=== PATIENT | female | born 1955 | race Hispanic/Latino ===

== ENCOUNTER 2021-03-15 16:45 | Emergency (ER) | payer SELFPAY ==
[2021-03-15 17:29] LABS: Absolute Lymphocytes (CBC) 5.6 K/uL (0.7-4.9); Basophils % 0.2 % (0-1.3); Hematocrit 40.3 % (36.0-45.0); Lymphocytes % 38.3 % (15.3-44.8); MPV 9.5 fL (7.6-11.3); RBC Red Blood Cell Count 4.67 M/uL (3.86-4.86)
[2021-03-15] MEDS ORDERED: DIAZEPAM 10 MG/2 ML INJ SYRINGE ONE (17:29)
[2021-03-15] MEDS ORDERED: ONDANSETRON 4 MG/2 ML VIAL ONE ×2 (17:29→18:10)
[2021-03-15] MEDS ORDERED: NA CHLORIDE 0.9% 1,000 ML ONE (17:30)
[2021-03-15 17:34] LABS: Protime INR 0.92
--- NOTE | 2021-03-15 17:50 | RAD REPORT ---
EXAM DESCRIPTION: CT - Head Brain Wo Cont - 03/15/2021 5:36 pm CLINICAL HISTORY: Dizziness COMPARISON: 2016 TECHNIQUE: Computed axial tomography of the head was obtained. IV contrast was not requested. All CT scans are performed using dose optimization technique as appropriate and may include automated exposure control or mA/KV adjustment according to patient size. FINDINGS: An intracranial bleed is not seen . The ventricles are normal in caliber. No extra-axial fluid collection is noted. 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 Mild low-density areas within per iventricular, deep and subcortical white matter likely ischemic changes secondary to mild small vesse l disease Fluid within the sinuses/ mastoids is not seen. IMPRESSION: No acute intracranial abnormality is seen. If patient's symptoms persist MRI of the bra in would be recommended.
[2021-03-15 17:56] LABS: ALT/SGPT 26 U/L (12-78); AST/SGOT 18 U/L (15-37); Alkaline Phosphatase 124 U/L (45-117); BUN Blood Urea Nitrogen 16 mg/dL (7-18); Bicarbonate 19 mmol/L (21-32); Bilirubin Direct < 0.1 mg/dL (0-0.2); Bilirubin Total 0.4 mg/dL (0.2-1.0); Glucose Level 265 mg/dL (74-106); Magnesium 1.7 mg/dL (1.8-2.4); NT PRO-BNP 22 pg/mL (<125); Potassium 3.3 mmol/L (3.5-5.1); Protein, Total 8.2 g/dL (6.4-8.2); Sodium Level 138 mmol/L (136-145); Troponin (Emerg Dept Use Only) < 0.02 ng/mL (0.0-0.045)
--- NOTE | 2021-03-15 18:42 | RAD REPORT ---
EXAM DESCRIPTION: Cora Single View03/15/2021 5:52 pm CLINICAL HISTORY: Vertigo COMPARISON: 2012 FINDINGS: Calcified granulomas within the lungs. The lungs appear clear of acute infiltrate. The heart is normal size IMPRESSION: No acute abnormalities displayed
[2021-03-15] MEDS ORDERED: POTASSIUM CL SA 10 MEQ TAB PO ONE (18:47)
[2021-03-15] MEDS ORDERED: MECLIZINE HCL 12.5 MG TAB ONE ×2 (18:47→20:22)
[2021-03-15] MEDS ORDERED: MAGNESIUM SULFATE 1 gm IVPB 1 GM/100 ML BAG IV ONE (18:48)
--- NOTE | 2021-03-15 21:11 | ER ---
Nurse's Notes [facility] Name: Ursuzla Menchaca Age: 65 yrs Sex: Female : 1955 Arrival Date: 03/15/2021 Time: 16:46 Bed 23 Private MD: Diagnosis: Benign paroxysmal vertigo Presentation: 03/15 16:52 Chief complaint: Patient states: Dizziness, N/V started around 1530 today. HX of ca1 Vertigo. Coronavirus screen: Client denies travel out of the [place] in the last 14 days. At this time, the client does not indicate any symptoms associated with coronavirus-19. Ebola Screen: Patient negative for fever greater than or equal to 101.5 degrees Fahrenheit, and additional compatible Ebola Virus Disease symptoms Patient denies exposure to infectious person. Patient denies travel to an Ebola-affected area in the 21 days before illness onset. No symptoms or risks identified at this time. Initial Sepsis Screen: Does the patient meet any 2 criteria? No. Patient's initial sepsis screen is negative. Does the patient have a suspected source of infection? No. Patient's initial sepsis screen is negative. Risk Assessment: Do you want to hurt yourself or someone else? Patient reports no desire to harm self or others. Onset of symptoms was March 15, 2021 at 15:30. 16:52 Method Of Arrival: Wheelchair ca1 16:52 Acuity: MARIFER 3 ca1 Historical: - Allergies: 16:53 Morphine; ca1 - PMHx: 16:53 Diabetes - NIDDM; Hypertension; Vertigo; ca1 - Immunization history:: Client reports receiving the 1st dose of the Covid vaccine, Adams and adams Flu vaccine is up to date. - Social history:: Smoking status: Patient denies any tobacco usage or history of. Screenin:41 Abuse screen: Denies threats or abuse. Denies injuries from another. Nutritional zb screening: No deficits noted. Tuberculosis screening: No symptoms or risk factors identified. Fall Risk No fall in past 12 months (0 pts). Secondary diagnosis (15 points) vertigo . IV access (20 points). Ambulatory Aid- None/Bed Rest/Nurse Assist (0 pts). Gait- Impaired (20 pts.). Mental Status- Oriented to own ability (0 pts). Total Ramirez Fall Scale indicates Low Risk Score (25-44 pts). Fall prevention measures have been instituted. Side Rails Up X 2 Placed close to Nursing Station Frequent Obs/Assesments occuring Family Present and informed to notify staff if they need to leave bedside As available Patient and Family Educated on Fall Prevention Program and strategies. Assessment: 17:42 General: Appears uncomfortable, Behavior is calm. Pain: Denies pain. Neuro: Level of zb Consciousness is awake, alert, Oriented to person, place, time, Reports dizziness, since 1500. Cardiovascular: Capillary refill < 3 seconds Patient's skin is warm and dry. Respiratory: Airway is patent Respiratory effort is even, unlabored, Respiratory pattern is regular, symmetrical. GI: Pt is actively vomiting clear fluid, Bowel sounds present X 4 quads. Reports nausea, vomiting. Derm: Skin is intact, is healthy with good turgor, Skin is dry. Musculoskeletal: Range of motion: intact in all extremities. 17:43 Reassessment: x-ray at bedside. zb 17:45 Reassessment: pt came back from ct c/o nausea and dry heaving. notified dr. lea watkins received verbal order for medication. medication given. 18:52 Reassessment: Patient appears in no apparent distress at this time. Patient and/or zb family updated on plan of care and expected duration. Pain level reassessed. Patient is alert, oriented x 3, equal unlabored respirations, skin warm/dry/pink. no n/v at this time. IV fluid infusing. family at bedside. 20:02 Reassessment: notified ecp that patient feels a little better. still c/o of dizziness. zb 20:52 Reassessment: Patient appears in no apparent distress at this time. Patient and/or zb family updated on plan of care and expected duration. Pain level reassessed. Patient is alert, oriented x 3, equal unlabored respirations, skin warm/dry/pink. 21:38 Reassessment: Patient appears in no apparent distress at this time. Patient and/or zb family updated on plan of care and expected duration. Pain level reassessed. Patient is alert, oriented x 3, equal unlabored respirations, skin warm/dry/pink. Patient states feeling better. Vital Signs: 16:52 BP 169 / 69; Pulse 93; Resp 18 S; Temp 96.2(TE); Pulse Ox 98% on R/A; Weight 67.59 kg ca1 (R); Height 5 ft. 0 in. (152.40 cm) (R); Pain 0/10; 17:59 BP 151 / 79; Pulse 87; Resp 16; Pulse Ox 91% on R/A; zb 18:51 BP 155 / 75; Pulse 85; Resp 16; Pulse Ox 95% on R/A; zb 20:02 BP 151 / 78; Pulse 86; Resp 16; Pulse Ox 95% on R/A; zb 20:51 BP 154 / 78; Pulse 88; Resp 18; Pulse Ox 100% on R/A; zb 16:52 Body Mass Index 29.10 (67.59 kg, 152.40 cm) ca1 ED Course: 16:46 Patient arrived in ED. as 16:53 Triage completed. ca1 16:53 Arm band placed on right wrist. ca1 16:59 Camilla Almendarez RN is Primary Nurse. zb 17:02 Hugo Rivas NP is PHCP. pm1 17:02 Robi Marquis MD is Attending Physician. pm1 17:36 CT Head Brain wo Cont In Process Unspecified. EDMS 17:43 Initial lab(s) drawn, by me, sent to lab. Inserted saline lock: 20 gauge in right zb wrist, using aseptic technique. Blood collected. 17:44 Patient has correct armband on for positive identification. Bed in low position. Call zb light in reach. Side rails up X 1. panel monitor on. Pulse ox on. NIBP on. Door closed. Noise minimized. 17:52 XRAY Chest (1 view) In Process Unspecified. EDMS 21:38 No provider procedures requiring assistance completed. IV discontinued, intact, zb bleeding controlled, No redness/swelling at site. Pressure dressing applied. Administered Medications: 17:16 Drug: NS 0.9% 1000 ml Route: IV; Rate: 1000 ml; Site: right antecubital; zb 17:17 Drug: Zofran (Ondansetron) 4 mg Route: IVP; Site: right antecubital; zb 17:20 Follow up: Response: No adverse reaction; Marked relief of symptoms zb 17:17 Drug: Valium (diazepam) 5 mg Route: IVP; Site: right antecubital; zb 17:20 Follow up: Response: No adverse reaction; Marked relief of symptoms zb 17:58 Drug: Zofran (Ondansetron) 4 mg Route: IVP; Site: right wrist; zb 18:50 Follow up: Response: No adverse reaction; Marked relief of symptoms; Nausea is decreasedzb 18:50 Drug: Meclizine 25 mg Route: PO; zb 20:01 Follow up: Response: No adverse reaction; Marked relief of symptoms zb 18:50 Drug: Magnesium Sulfate 1 grams Route: IVPB; Infused Over: 1 hrs; Site: right wrist; zb 19:50 Follow up: IV Status: Completed infusion; IV Intake: 100ml zb 18:50 Drug: Potassium Chloride 40 mEq Route: PO; zb 20:01 Follow up: Response: No adverse reaction; Marked relief of symptoms zb 19:59 CANCELLED (Physician Discretion): Meclizine 50 mg PO once pm1 20:01 Drug: Meclizine 25 mg Route: PO; zb 21:38 Follow up: Response: No adverse reaction zb Intake: 19:50 IV: 100ml; Total: 100ml. zb Outcome: 21:10 Discharge ordered by MD. pm1 21:38 Discharged to home ambulatory. zb 21:38 Condition: stable 21:38 Discharge instructions given to patient, Instructed on discharge instructions, follow up and referral plans. medication usage, Demonstrated understanding of instructions, follow-up care, medications, Prescriptions given X 2. 21:39 Patient left the ED. zb Signatures: Dispatcher [employer] EDFadia Lord Patrick, DEV MOTOR VEHICLE SALESPERSON pm1 Oralia Rodgers RN RN ca1 Brown, Zipporah, RN RN zb
--- NOTE | 2021-03-15 21:11 | EDPHYS ---
Physician Documentation [facility] Name: Urszula Menchaca Age: 65 yrs Sex: Female : 1955 Arrival Date: 03/15/2021 Time: 16:46 Bed 23 Private MD: ED Physician Robi Marquis HPI: 03/15 17:05 This 65 yrs old Female presents to ER via Wheelchair with complaints of pm1 Vertigo. 17:05 The patient presents with vertigo. pm1 17:05 Onset: The symptoms/episode began/occurred today, at 15:30. pm1 17:05 Modifying factors: The symptoms are alleviated by closing eyes, holding head still, the pm1 symptoms are aggravated by movement of head, changing position. Associated signs and symptoms: Pertinent positives: nausea, vomiting, Pertinent negatives: chest pain, shortness of breath. Severity of symptoms: in the emergency department the symptoms are unchanged Pain is currently a 0 / 10. The patient has experienced similar episodes in the past, several times, and the symptoms today are exactly the same. 23:50 Context: occurred at home. pm1 Historical: - Allergies: 16:53 Morphine; ca1 - PMHx: 16:53 Diabetes - NIDDM; Hypertension; Vertigo; ca1 - Immunization history:: Client reports receiving the 1st dose of the Covid vaccine, Adams and adams Flu vaccine is up to date. - Social history:: Smoking status: Patient denies any tobacco usage or history of. ROS: 17:05 Constitutional: Negative for fever, chills, and weight loss, Eyes: Negative for injury, pm1 pain, redness, and discharge, ENT: Negative for injury, pain, and discharge, Neck: Negative for injury, pain, and swelling, Cardiovascular: Negative for chest pain, palpitations, and edema, Respiratory: Negative for shortness of breath, cough, wheezing, and pleuritic chest pain. 17:05 Back: Negative for injury and pain, MS/Extremity: Negative for injury and deformity, Skin: Negative for injury, rash, and discoloration. 17:05 Abdomen/GI: Positive for nausea and vomiting, Negative for abdominal pain, diarrhea, constipation. 17:05 Neuro: Positive for dizziness, Negative for headache, numbness, tingling, weakness. 17:05 All other systems are negative. pm1 Exam: 17:05 Constitutional: This is a well developed, well nourished patient who is awake, alert, pm1 and in no acute distress. Head/Face: Normocephalic, atraumatic. 17:05 Neck: Trachea midline, no thyromegaly or masses palpated, and no cervical lymphadenopathy. Supple, full range of motion without nuchal rigidity, or vertebral point tenderness. No Meningismus. 17:05 Back: No spinal tenderness. No costovertebral tenderness. Full range of motion. Skin: Warm, dry with normal turgor. Normal color with no rashes, no lesions, and no evidence of cellulitis. MS/ Extremity: Pulses equal, no cyanosis. Neurovascular intact. Full, normal range of motion. 17:05 Eyes: Extraocular movements: intact throughout, Nystagmus: horizontal vestibular nystagmus when looking to the left of center. 17:05 ENT: Mouth: Lips: normal, Oral mucosa: normal, pink and intact, moist. 17:05 Cardiovascular: Exam negative for acute changes, Rate: normal, Rhythm: regular, Pulses: no pulse deficits are appreciated, Heart sounds: normal, Edema: is not appreciated. 17:05 Respiratory: Exam negative for acute changes, respiratory distress, shortness of breath, Breath sounds: are clear throughout. 17:05 Abdomen/GI: Inspection: abdomen appears normal, Palpation: abdomen is soft and non-tender, in all quadrants. 17:05 Neuro: Exam negative for acute changes, Orientation: is normal, Mentation: is normal, Motor: is normal, moves all fours. Vital Signs: 16:52 BP 169 / 69; Pulse 93; Resp 18 S; Temp 96.2(TE); Pulse Ox 98% on R/A; Weight 67.59 kg ca1 (R); Height 5 ft. 0 in. (152.40 cm) (R); Pain 0/10; 17:59 BP 151 / 79; Pulse 87; Resp 16; Pulse Ox 91% on R/A; zb 18:51 BP 155 / 75; Pulse 85; Resp 16; Pulse Ox 95% on R/A; zb 20:02 BP 151 / 78; Pulse 86; Resp 16; Pulse Ox 95% on R/A; zb 20:51 BP 154 / 78; Pulse 88; Resp 18; Pulse Ox 100% on R/A; zb 16:52 Body Mass Index 29.10 (67.59 kg, 152.40 cm) ca1 MDM: 17:04 Patient medically screened. pm1 21:08 Data reviewed: vital signs. Data interpreted: Pulse oximetry: on room air is 100 %. pm1 Interpretation: normal. Counseling: I had a detailed discussion with the patient and/or guardian regarding: the historical points, exam findings, and any diagnostic results supporting the discharge/admit diagnosis, lab results, radiology results, the need for outpatient follow up, to return to the emergency department if symptoms worsen or persist or if there are any questions or concerns that arise at home. 03/15 17:04 Order name: Basic Metabolic Panel; Complete Time: 18:07 pm03/15 17:04 Order name: CBC with Diff; Complete Time: 18:07 pm03/15 17:04 Order name: LFT's; Complete Time: 18:07 pm03/15 17:04 Order name: Magnesium; Complete Time: 18:07 pm03/15 17:04 Order name: NT PRO-BNP; Complete Time: 18:07 pm03/15 17:04 Order name: PT-INR; Complete Time: 18:07 pm03/15 17:04 Order name: Troponin (emerg Dept Use Only); Complete Time: 18:07 pm03/15 17:04 Order name: XRAY Chest (1 view); Complete Time: 19:15 pm03/15 17:04 Order name: CT Head Brain wo Cont; Complete Time: 17:51 pm03/15 17:04 Order name: EKG; Complete Time: 17:05 pm03/15 17:04 Order name: Cardiac monitoring; Complete Time: 18:02 pm03/15 17:04 Order name: EKG - Nurse/Tech; Complete Time: 18:02 pm03/15 17:04 Order name: IV Saline Lock; Complete Time: 17:17 pm03/15 17:04 Order name: Labs collected and sent; Complete Time: 17:17 pm03/15 17:04 Order name: O2 Per Protocol; Complete Time: 17:17 pm03/15 17:04 Order name: O2 Sat Monitoring; Complete Time: 17:17 pm1 Administered Medications: 17:16 Drug: NS 0.9% 1000 ml Route: IV; Rate: 1000 ml; Site: right antecubital; zb 17:17 Drug: Zofran (Ondansetron) 4 mg Route: IVP; Site: right antecubital; zb 17:20 Follow up: Response: No adverse reaction; Marked relief of symptoms zb 17:17 Drug: Valium (diazepam) 5 mg Route: IVP; Site: right antecubital; zb 17:20 Follow up: Response: No adverse reaction; Marked relief of symptoms zb 17:58 Drug: Zofran (Ondansetron) 4 mg Route: IVP; Site: right wrist; zb 18:50 Follow up: Response: No adverse reaction; Marked relief of symptoms; Nausea is decreasedzb 18:50 Drug: Meclizine 25 mg Route: PO; zb 20:01 Follow up: Response: No adverse reaction; Marked relief of symptoms zb 18:50 Drug: Magnesium Sulfate 1 grams Route: IVPB; Infused Over: 1 hrs; Site: right wrist; zb 19:50 Follow up: IV Status: Completed infusion; IV Intake: 100ml zb 18:50 Drug: Potassium Chloride 40 mEq Route: PO; zb 20:01 Follow up: Response: No adverse reaction; Marked relief of symptoms zb 19:59 CANCELLED (Physician Discretion): Meclizine 50 mg PO once pm1 20:01 Drug: Meclizine 25 mg Route: PO; zb 21:38 Follow up: Response: No adverse reaction zb Disposition Summary: 03/15/21 21:10 Discharge Ordered Location: Home pm1 Problem: new pm1 Symptoms: have improved pm1 Condition: Stable pm1 Diagnosis - Benign paroxysmal vertigo pm1 Followup: pm1 - With: Emergency Department - When: As needed - Reason: Worsening of condition Followup: pm1 - With: Private Physician - When: 2 - 3 days - Reason: Recheck today's complaints, Continuance of care, Re-evaluation by your physician Discharge Instructions: - Discharge Summary Sheet pm1 - Benign Positional Vertigo pm1 Forms: - Medication Reconciliation Form pm1 - Thank You Letter pm1 - Antibiotic Education pm1 - Prescription Opioid Use pm1 Prescriptions: - ondansetron 4 mg Oral tablet,disintegrating - take 1 tablet by ORAL route every 8 hours As needed; 15 tablet; Refills: 0, pm1 Product Selection Permitted - Meclizine 25 mg Oral Tablet - take 1 tablet by ORAL route every 8 hours As needed; 30 tablet; Refills: 0, pm1 Product Selection Permitted Signatures: Dispatcher [employer] Hugo Awan, LINE OPERATOR LINE OPERATOR pm1 Oralia Rodgers RN RN Camilla Ludwig RN RN zb Corrections: (The following items were deleted from the chart) 19:59 19:59 Meclizine 50 mg PO once ordered. pm1 pm1 03/16 00:08 07 17:05 Onset: The symptoms/episode began/occurred today, pm1 pm1
[2021-03-15 22:17] VITALS: BP 154/78; O2SAT 100
[2021-03-15 22:25] VITALS: TEMP 96.2
--- NOTE | 2021-03-16 16:08 | EKG ---
Test Date: 2021-03-15 Test Time: 17:53:54 Warranty Clerk: MIAN MEASUREMENT RESULTS: Intervals: Rate: 88 IA: 150 QRSD: 94 QT: 410 QTc: 496 [place]: P: 43 IA: 150 QRS: -22 T: -8 INTERPRETIVE STATEMENTS: Normal sinus rhythm Prolonged QT Abnormal ECG Compared to ECG 08/19/2016 21:34:39 Prolonged QT interval now present Electronically Signed On 03-16-21 16:04:16 CDT by Willard Wallace
== END 2021-03-15 21:39 | disposition home or self-care (01) ==
LOC: ER 16:45
DX: H81.10 Benign paroxysmal vertigo, unspecified ear (principal); I10 Essential (primary) hypertension; E11.9 Type 2 diabetes mellitus without complications; Z88.5 Allergy status to narcotic agent
CPT/HCPCS: 36415; 70450; 71045; 80048; 80076; 83735; 83880; 84484; 85025; 85610; 93005; 99284; J2405; J3360; J3475; J7030

== ENCOUNTER 2022-08-06 05:57 | Emergency (ER) | payer MEDICARE ==
[2022-08-06] MEDS ORDERED: ONDANSETRON 4 MG/2 ML VIAL ONE (06:21)
[2022-08-06] MEDS ORDERED: NA CHLORIDE 0.9% 1,000 ML ONE (06:21)
[2022-08-06 06:31] LABS: Absolute Lymphocytes (CBC) 2.5 K/uL (0.7-4.9); Hematocrit 38.3 % (36.0-45.0); Lymphocytes % 17.7 % (15.3-44.8); MCV 86.4 fL (80-100); MPV 8.6 fL (7.6-11.3); RBC Red Blood Cell Count 4.43 M/uL (3.86-4.86)
[2022-08-06 06:48] LABS: Albumin 3.9 g/dL (3.4-5.0); Bilirubin Total 0.8 mg/dL (0.2-1.0); Potassium 3.6 mmol/L (3.5-5.1); Protein, Total 7.7 g/dL (6.4-8.2)
--- NOTE | 2022-08-06 06:51 | EDPHYS ---
Physician Documentation [facility] Name: Urszula Mnechaca Age: 67 yrs Sex: Female : 1955 Arrival Date: 08/06/2022 Time: 06:00 Bed 5 Private MD: ED Physician Scar Braxton HPI: 08/06 06:09 This 67 yrs old Female presents to ER via Unassigned with complaints of ms3 Nausea/Vomiting/Diarrhea, Cough, Congestion. 06:09 The patient presents to the emergency department with nausea, that is moderate, ms3 vomiting, diarrhea. Onset: The symptoms/episode began/occurred 3 day(s) ago. Possible causes: unknown, sick contacts, by co-worker(s). The symptoms are aggravated by nothing. The symptoms are alleviated by nothing. Associated signs and symptoms: Pertinent positives: diarrhea, nausea, vomiting, Pertinent negatives: abdominal pain. Severity of symptoms: At their worst the symptoms were moderate in the emergency department the symptoms are unchanged Pain is currently a 0 / 10. Historical: - Allergies: 06:25 Morphine; kl 06:25 Codeine; kl - Home Meds: 06:25 amlodipine 10 mg tab 1 tab once daily [Active]; metformin 1,000 mg Oral tab 1 tab 2 kl times per day [Active]; - PMHx: 06:25 Diabetes - NIDDM; Hypertension; Vertigo; kl - PSHx: 06:25 section; Total abdominal hysterectomy; kl - Immunization history:: Adult Immunizations not up to date. - Social history:: Smoking status: Patient denies any tobacco usage or history of. ROS: 06:09 Constitutional: Negative for fever, and chills. Neck: Negative for injury, pain, and ms3 swelling, Cardiovascular: Negative for chest pain, and palpitations. Respiratory: Negative for shortness of breath, cough, wheezing, and pleuritic chest pain. 06:09 MS/Extremity: Negative for injury and deformity, Skin: Negative for injury, rash, and discoloration, Neuro: Negative for headache, weakness, numbness, tingling. 06:09 Abdomen/GI: Positive for nausea, vomiting, and diarrhea, Negative for abdominal pain. 06:09 All other systems are negative. Exam: 06:09 Constitutional: This is a well developed, well nourished patient who is awake, alert, ms3 and in no acute distress. Head/Face: Normocephalic, atraumatic. Neck: Trachea midline, no cervical lymphadenopathy. Supple, full range of motion without nuchal rigidity, or vertebral point tenderness. No Meningismus. Chest/axilla: Normal chest wall appearance and motion. Nontender with no deformity. Cardiovascular: Regular rate and rhythm with a normal S1 and S2. No gallops, murmurs, or rubs. Normal PMI, no JVD. No pulse deficits. Respiratory: Lungs have equal breath sounds bilaterally, clear to auscultation and percussion. No rales, rhonchi or wheezes noted. No increased work of breathing, no retractions or nasal flaring. Abdomen/GI: Soft, non-tender, with normal bowel sounds. No distension or tympany. No guarding or rebound. No evidence of tenderness throughout. Skin: Warm, dry with normal turgor. Normal color with no rashes, no lesions, and no evidence of cellulitis. MS/ Extremity: Pulses equal, no cyanosis. Neurovascular intact. Full, normal range of motion. Vital Signs: 06:01 BP 157 / 77; Pulse 66; Resp 18; Temp 98.3(O); Pulse Ox 99% on R/A; Weight 64.5 kg (M); kl Height 5 ft. (152.40 cm); Pain 0/10; 06:27 BP 147 / 77; Pulse 72; Resp 16; Pulse Ox 95% on R/A; kl 07:02 BP 148 / 75; Pulse 68; Resp 18; Pulse Ox 98% ; kl 06:01 Body Mass Index 27.77 (64.50 kg, 152.40 cm) MDM: 06:08 Patient medically screened. ms3 06:09 Differential diagnosis: viral gastroenteritis, gastroenteritis, dehydration. ms3 06:51 Data reviewed: vital signs, nurses notes, and as a result, I will discharge patient. ms3 Counseling: I had a detailed discussion with the patient and/or guardian regarding: the historical points, exam findings, and any diagnostic results supporting the discharge/admit diagnosis, lab results, the need for outpatient follow up, to return to the emergency department if symptoms worsen or persist or if there are any questions or concerns that arise at home. ED course: Discussed labs and physical exam findings with patient. Patient to follow-up with Dr. Carranza in 2 to 3 days. Patient understands and agrees with plan. All questions were answered. Return precautions discussed include worsening symptoms, or any other concerns. On reevaluation patient's abdomen remains benign, patient is alert and oriented x4, in no apparent distress, nontoxic-appearing.. 08/06 06:09 Order name: CBC with Diff; Complete Time: 06:43 ms3 08/06 06:09 Order name: CMP; Complete Time: 06:49 ms3 08/06 06:09 Order name: Lipase; Complete Time: 06:49 ms3 08/06 06:09 Order name: IV Saline Lock; Complete Time: 06:22 ms3 08/06 06:09 Order name: Labs collected and sent; Complete Time: 06:23 ms3 Administered Medications: 06:22 Drug: NS 0.9% 1000 ml Route: IV; Rate: 1 bolus; Site: right forearm; kl 06:22 Drug: Zofran (Ondansetron) 4 mg Route: IVP; Site: right forearm; kl Disposition Summary: 08/06/22 06:50 Discharge Ordered Location: Home ms3 Condition: Stable ms3 Diagnosis - Nausea with vomiting, unspecified ms3 - Diarrhea, unspecified ms3 Followup: ms3 - With: Glenn Carranza DO - When: 2 - 3 days - Reason: Recheck today's complaints Discharge Instructions: - Discharge Summary Sheet ms3 - Diarrhea, Adult ms3 - Nausea and Vomiting, Adult ms3 Forms: - Medication Reconciliation Form ms3 - Work release form eb - Thank You Letter ms3 - Antibiotic Education ms3 - Prescription Opioid Use ms3 Prescriptions: - ondansetron 4 mg Oral tablet,disintegrating - place 1 tablet by TRANSLINGUAL route every 8 hours; 15 tablet; Refills: 0, ms3 Product Selection Permitted Signatures: Dispatcher [employer] Angely Monreal RN RN kl Sims, Marcus, DO DO ms3
--- NOTE | 2022-08-06 06:51 | ER ---
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 Coronavirus screen: Vaccine status: Patient reports receiving the 2nd dose of the covid vaccine. Ebola Screen: Patient negative for fever greater than or equal to 101.5 degrees Fahrenheit, and additional compatible Ebola Virus Disease symptoms. Initial Sepsis Screen: Does the patient meet any 2 criteria? No. Patient's initial sepsis screen is negative. Does the patient have a suspected source of infection? No. Patient's initial sepsis screen is negative. Risk Assessment: Do you want to hurt yourself or someone else? Patient reports desire/thoughts of hurting themselves or someone else. Provider notified. 06:01 Method Of Arrival: Ambulatory 06:01 Acuity: MARIFER 3 Triage Assessment: 06:26 General: Appears in no apparent distress. comfortable, Behavior is calm, cooperative. Pain: Denies pain. EENT: No deficits noted. Neuro: No deficits noted. Cardiovascular: No deficits noted. Respiratory: No deficits noted. GI: Reports diarrhea, intolerance of fluids, intolerance of food, vomiting, since x 3 days. : No deficits noted. No signs and/or symptoms were reported regarding the genitourinary system. Derm: No deficits noted. No signs and/or symptoms reported regarding the dermatologic system. Historical: - Allergies: 06:25 Morphine; kl 06:25 Codeine; - Home Meds: 06:25 amlodipine 10 mg tab 1 tab once daily [Active]; metformin 1,000 mg Oral tab 1 tab 2 kl times per day [Active]; - PMHx: 06:25 Diabetes - NIDDM; Hypertension; Vertigo; kl - PSHx: 06:25 section; Total abdominal hysterectomy; kl - Immunization history:: Adult Immunizations not up to date. - Social history:: Smoking status: Patient denies any tobacco usage or history of. Screenin:27 Abuse screen: Denies threats or abuse. Nutritional screening: No deficits noted. Tuberculosis screening: No symptoms or risk factors identified. Fall Risk None identified. Assessment: 06:27 Reassessment: see triage assessment. kl 07:03 GI: Abdomen is flat, non-distended. Vital Signs: 06:01 BP 157 / 77; Pulse 66; Resp 18; Temp 98.3(O); Pulse Ox 99% on R/A; Weight 64.5 kg (M); kl Height 5 ft. (152.40 cm); Pain 0/10; 06:27 BP 147 / 77; Pulse 72; Resp 16; Pulse Ox 95% on R/A; kl 07:02 BP 148 / 75; Pulse 68; Resp 18; Pulse Ox 98% ; kl 06:01 Body Mass Index 27.77 (64.50 kg, 152.40 cm) ED Course: 06:00 Patient arrived in ED. [email or web address] 06:01 Scar Braxton DO is Attending Physician. ms3 06:15 No provider procedures requiring assistance completed. Inserted saline lock: 20 gauge kl in right forearm, using aseptic technique. 06:23 CBC with Diff Sent. kl 06:23 CMP Sent. kl 06:23 Lipase Sent. kl 06:25 Triage completed. kl 06:27 Patient has correct armband on for positive identification. kl 06:50 Glenn Carranza DO is Referral Physician. ms3 07:03 IV discontinued, intact, bleeding controlled, No redness/swelling at site. Pressure kl dressing applied. Administered Medications: 06:22 Drug: NS 0.9% 1000 ml Route: IV; Rate: 1 bolus; Site: right forearm; 06:22 Drug: Zofran (Ondansetron) 4 mg Route: IVP; Site: right forearm; Medication: 07:03 VIS not applicable for this client. Outcome: 06:50 Discharge ordered by . ms3 07:03 Discharged to home ambulatory. 07:03 Condition: improved 07:03 Discharge instructions given to patient, Instructed on discharge instructions, follow up and referral plans. medication usage, Demonstrated understanding of instructions, follow-up care, medications, Prescriptions given X 1. 07:04 Patient left the ED. Signatures: Angely Rios RN RN kl Sims, Marcus, DO DO ms3 Malgorzata Castorena jj6
[2022-08-06 07:08] VITALS: TEMP 98.3
[2022-08-06 07:10] VITALS: BP 148/75; O2SAT 98
== END 2022-08-06 07:04 | disposition home or self-care (01) ==
LOC: ER 05:57
DX: R11.2 Nausea with vomiting, unspecified (principal); R19.7 Diarrhea, unspecified
CPT/HCPCS: 85025; 36415; 83690; 80053; 96374; 99284; J7030; J2405

== ENCOUNTER 2023-01-16 19:34 | Emergency (ER) | payer OTHER ==
[2023-01-16] MEDS ORDERED: ONDANSETRON 4 MG (ODT) TAB ONE (19:50)
[2023-01-16 20:13] LABS: Absolute Lymphocytes (CBC) 4.5 K/uL (0.7-4.9); Hematocrit 40.3 % (36.0-45.0); Lymphocytes % 41.2 % (15.3-44.8); MCV 85.2 fL (80-100); MPV 8.9 fL (7.6-11.3); RBC Red Blood Cell Count 4.74 M/uL (3.86-4.86)
[2023-01-16] MEDS ORDERED: ONDANSETRON 4 MG/2 ML VIAL ONE (20:15)
[2023-01-16] MEDS ORDERED: PROMETHAZINE INJ 25 MG/ML AMP ONE (20:15)
[2023-01-16] MEDS ORDERED: NA CHLORIDE 0.9% 500 ML ONE (20:15)
[2023-01-16] MEDS ORDERED: DIAZEPAM 10 MG/2 ML INJ SYRINGE ONE (20:15)
[2023-01-16 20:33] LABS: Bilirubin Total 0.4 mg/dL (0.2-1.0); Potassium 3.3 mEq/L (3.5-5.1); Protein, Total 8.3 g/dL (6.4-8.2)
--- NOTE | 2023-01-16 21:58 | ER ---
Nurse's Notes [facility] Name: Urszula Menchaca Age: 67 yrs Sex: Female : 1955 Arrival Date: 01/16/2023 Time: 19:34 Bed 15 Private MD: Jerald Coppola E Diagnosis: Other peripheral vertigo, bilateral Presentation: 01/16 19:50 Chief complaint: Patient states: "Around 4 pm I laid down and took a nap, when I woke vc1 up the room was spinning. I have done this before and spent 3 days in ICU dizzy and unable to stop vomiting.". Coronavirus screen: Vaccine status: Patient reports receiving the 1st dose of the Covid vaccine. At this time, the client does not indicate any symptoms associated with coronavirus-19. Ebola Screen: Patient negative for fever greater than or equal to 101.5 degrees Fahrenheit, and additional compatible Ebola Virus Disease symptoms Patient denies exposure to infectious person. Patient denies travel to an Ebola-affected area in the 21 days before illness onset. No symptoms or risks identified at this time. 19:50 Method Of Arrival: Ambulatory vc1 19:50 Initial Sepsis Screen: Does the patient meet any 2 criteria? No. Patient's initial vc1 sepsis screen is negative. Does the patient have a suspected source of infection? No. Patient's initial sepsis screen is negative. Risk Assessment: Do you want to hurt yourself or someone else? Patient reports no desire to harm self or others. Onset of symptoms was January 16, 2023 at 18:00. 19:50 Acuity: MARIFER 3 vc1 20:30 Care prior to arrival: Medication(s) given: Meclizine. vc1 Triage Assessment: 22:16 General: Appears distressed, uncomfortable, ill, Behavior is cooperative. Pain: Denies vc1 pain. EENT: No deficits noted. No signs and/or symptoms were reported regarding the EENT system. Neuro: No deficits noted. Neuro: Reports dizziness. Cardiovascular: No deficits noted. Respiratory: Airway is patent Respiratory effort is even, unlabored, Respiratory pattern is regular, symmetrical. GI: Abdomen is flat, Pt is actively vomiting. : No deficits noted. No signs and/or symptoms were reported regarding the genitourinary system. Derm: No deficits noted. No signs and/or symptoms reported regarding the dermatologic system. Musculoskeletal: No deficits noted. No signs and/or symptoms reported regarding the musculoskeletal system. Historical: - Allergies: 20:30 Codeine; vc1 20:30 Morphine; vc1 - Home Meds: 20:30 amlodipine 10 mg tab 1 tab once daily [Active]; metformin 1,000 mg Oral tab 1 tab 2 vc1 times per day [Active]; - PMHx: 20:30 Diabetes - NIDDM; Hypertension; Vertigo; vc1 - PSHx: 20:30 section; Total abdominal hysterectomy; vc1 - Immunization history:: Client reports receiving the Adams \\T\\ Adams single-dose vaccine. - Social history:: Smoking status: Patient denies any tobacco usage or history of. - Family history:: not pertinent. Screenin:31 [facility] ED Fall Risk Assessment (Adult) History of falling in the last 3 months, vc1 including since admission No falls in past 3 months (0 pts) Confusion or Disorientation No (0 pts) Intoxicated or Sedated No (0 pts) Impaired Gait No (0 pts) Mobility Assist Device Used No (0 pt) Altered Elimination No (0 pt) Score/Fall Risk Level 0 - 2 = Low Risk Oriented to surroundings, Maintained a safe environment, Educated pt \\T\\ family on fall prevention, incl call for assistance when getting out of bed. Abuse screen: Denies threats or abuse. Nutritional screening: No deficits noted. Tuberculosis screening: No symptoms or risk factors identified. Assessment: 20:00 GI: Bowel sounds present X 4 quads. Abd is soft Abd is non tender. vc1 21:00 Reassessment: Patient and/or family updated on plan of care and expected duration. Pain vc1 level reassessed. Patient states symptoms have improved. 22:00 Reassessment: Patient and/or family updated on plan of care and expected duration. Pain vc1 level reassessed. Patient denies pain at this time. Patient states feeling better. Patient states symptoms have improved. Vital Signs: 19:50 BP 186 / 70; Pulse 74; Resp 18; Temp 98.1; Pulse Ox 97% ; Weight 63.5 kg; Height 5 ft. vc1 0 in. ; Pain 0/10; 20:00 BP 159 / 82; Pulse 75; Resp 18; Pulse Ox 97% ; vc1 21:00 BP 167 / 84; Pulse 80; Resp 17; Pulse Ox 98% ; vc1 22:00 BP 163 / 80; Pulse 85; Resp 15; Pulse Ox 98% on R/A; vc1 19:50 Body Mass Index 27.34 (63.50 kg, 152.4 cm) vc1 19:50 Pain Scale: Adult vc1 ED Course: 19:36 Patient arrived in ED. mr 19:36 Jerald Coppola MD is Private Physician. mr 19:39 Roberto Patel MD is Attending Physician. sp4 20:00 Arm band placed on right wrist. vc1 20:00 Patient has correct armband on for positive identification. Bed in low position. Call vc1 light in reach. Pulse ox on. NIBP on. 20:05 CBC with Diff Sent. vc1 20:05 CMP Sent. vc1 20:05 Lipase Sent. vc1 20:27 Kelly Boo, RN is Primary Nurse. vc1 20:30 Triage completed. vc1 22:38 No provider procedures requiring assistance completed. IV discontinued, intact, vc1 bleeding controlled, No redness/swelling at site. Pressure dressing applied. Administered Medications: 19:45 Drug: Ondansetron PO 4 mg Route: PO; lg3 22:39 Follow up: Response: No adverse reaction; Marked relief of symptoms; Nausea is decreasedvc1 22:40 Follow up: Response: No adverse reaction; Vomiting unchanged vc1 20:33 Drug: Diazepam IVP 5 mg Route: IVP; Site: right forearm; vc1 22:39 Follow up: Response: No adverse reaction; Marked relief of symptoms; Nausea is decreasedvc1 20:33 Drug: NS 0.9% IV 500 ml Route: IV; Rate: bolus; Site: right forearm; vc1 22:40 Follow up: IV Status: Completed infusion vc1 20:34 Drug: Ondansetron IVP 4 mg Route: IVP; Site: right forearm; vc1 22:40 Follow up: Response: No adverse reaction; Adverse reaction, Physician notified; Nausea vc1 is decreased 20:34 Drug: Promethazine IM 25 mg Route: IM; Site: right deltoid; vc1 22:40 Follow up: Response: No adverse reaction; Marked relief of symptoms; Nausea is decreasedvc1 Medication: 22:18 VIS not applicable for this client. vc1 Outcome: 21:57 Discharge ordered by . sp4 22:38 Discharged to home via wheelchair, with family. vc1 22:38 Condition: good 22:38 Discharge instructions given to patient, Instructed on discharge instructions, follow up and referral plans. medication usage, Demonstrated understanding of instructions, follow-up care, medications, Prescriptions given X 3. 22:41 Patient left the ED. vc1 Signatures: Hannah PerdomosonAster RN RN lg3 Kelly Boo RN RN vc1 Roberto Patel MD MD sp4
--- NOTE | 2023-01-16 21:58 | EDPHYS ---
Physician Documentation [facility] Name: Urszula Menchaca Age: 67 yrs Sex: Female : 1955 Arrival Date: 01/16/2023 Time: 19:34 Bed 15 Private MD: Jerald Coppola E ED Physician Roberto Patel HPI: 01/16 19:39 This 67 yrs old Female presents to ER via Unassigned with complaints of sp4 Abdominal Pain, Vomiting, Vertigo. 21:52 Very pleasant 67-year-old female with history of prior vertigo, presents with acute sp4 onset of moderate to severe vertigo and vomiting starting 7:30 PM. Patient states she feels the room spinning around her. Patient said she had multiple episodes of vomit. History of prior similar episode 1 year ago. . Historical: - Allergies: 20:30 Codeine; vc1 20:30 Morphine; vc1 - Home Meds: 20:30 amlodipine 10 mg tab 1 tab once daily [Active]; metformin 1,000 mg Oral tab 1 tab 2 vc1 times per day [Active]; - PMHx: 20:30 Diabetes - NIDDM; Hypertension; Vertigo; vc1 - PSHx: 20:30 section; Total abdominal hysterectomy; vc1 - Immunization history:: Client reports receiving the Adams \T\ Adams single-dose vaccine. - Social history:: Smoking status: Patient denies any tobacco usage or history of. - Family history:: not pertinent. ROS: 21:52 Constitutional: Negative for fever, chills, and weight loss, Eyes: Negative for injury, sp4 pain, redness, and discharge, ENT: Negative for injury, pain, and discharge, Neck: Negative for injury, pain, and swelling, Cardiovascular: Negative for chest pain, palpitations, and edema, Respiratory: Negative for shortness of breath, cough, wheezing, and pleuritic chest pain, Abdomen/GI: Negative for abdominal pain, diarrhea, and constipation, positive for nausea and vomit Back: Negative for injury and pain, : Negative for injury, bleeding, discharge, and swelling, MS/Extremity: Negative for injury and deformity, Skin: Negative for injury, rash, and discoloration, Neuro: Negative for headache, weakness, numbness, tingling, and seizure, positive for vertigo and dizziness Psych: Negative for depression, anxiety, Allergy/Immunology: Negative for hives, rash, and allergies Endocrine: Negative for neck swelling, polydipsia, polyuria, polyphagia, and weight changes Hematologic/Lymphatic: Negative for swollen nodes, abnormal bleeding, and unusual bruising Exam: 21:52 Constitutional: This is a well developed, well nourished patient who is awake, alert, sp4 uncomfortable appearing female actively vomiting on the arrival Head/Face: Normocephalic, atraumatic. Eyes: Pupils equal round and reactive to light, extra-ocular motions intact. Lids and lashes normal. Conjunctiva and sclera are not injected. Cornea within normal limits. Periorbital areas with no swelling, redness, or edema. ENT: Nares patent. No nasal discharge, no septal abnormalities noted. Tympanic membranes are normal and external auditory canals are clear. Oropharynx with no redness, swelling, or masses, exudates, or evidence of obstruction, uvula midline. Mucous membranes moist. Neck: Trachea midline, no thyromegaly or masses palpated, and no cervical lymphadenopathy. Supple, full range of motion without nuchal rigidity, or vertebral point tenderness. No Meningismus. Chest/axilla: Normal chest wall appearance and motion. Nontender with no deformity. No lesions are appreciated. Cardiovascular: Regular rate and rhythm with a normal S1 and S2. No gallops, murmurs, or rubs. Normal PMI, no JVD. No pulse deficits. Respiratory: Lungs have equal breath sounds bilaterally, clear to auscultation and percussion. No rales, rhonchi or wheezes noted. No increased work of breathing, no retractions or nasal flaring. Abdomen/GI: Soft, non-tender, with normal bowel sounds. No distension or tympany. No guarding or rebound. No evidence of tenderness throughout. Back: No spinal tenderness. No costovertebral tenderness. Skin: Warm, dry with normal turgor. Normal color with no rashes, no lesions, and no evidence of cellulitis. MS/ Extremity: Pulses equal, no cyanosis. Neurovascular intact. Full, normal range of motion. Neuro: Awake and alert, GCS 15, oriented to person, place, time, and situation. Cranial nerves II-XII grossly intact. Motor strength 5/5 in all extremities. Sensory grossly intact. Positive horizontal nystagmus Psych: Awake, alert, with orientation to person, place and time. Behavior, mood, and affect are within normal limits Vital Signs: 19:50 BP 186 / 70; Pulse 74; Resp 18; Temp 98.1; Pulse Ox 97% ; Weight 63.5 kg; Height 5 ft. vc1 0 in. ; Pain 0/10; 20:00 BP 159 / 82; Pulse 75; Resp 18; Pulse Ox 97% ; vc1 21:00 BP 167 / 84; Pulse 80; Resp 17; Pulse Ox 98% ; vc1 22:00 BP 163 / 80; Pulse 85; Resp 15; Pulse Ox 98% on R/A; vc1 19:50 Body Mass Index 27.34 (63.50 kg, 152.4 cm) vc1 19:50 Pain Scale: Adult vc1 MDM: 19:40 Patient medically screened. sp4 21:52 Differential diagnosis: gastroenteritis, Acute peripheral vertigo. Data reviewed: vital sp4 signs, nurses notes, lab test result(s), CBC, electrolytes, hepatic panel. Consideration of Admission/Observation Escalation of care including admission/observation considered. ED course: Patient has improved after medications in the ER and reports improvement in her symptoms. Acute onset of vertigo is not a sign of CVA, CT head is not warranted at this time. Patient stable for discharge home with as needed Valium and Zofran and Phenergan as needed for nausea. 01/16 19:40 Order name: CBC with Diff; Complete Time: 21:44 sp4 01/16 19:40 Order name: CMP; Complete Time: 21:44 sp4 01/16 19:40 Order name: Lipase; Complete Time: 21:44 sp4 01/16 19:40 Order name: IV Saline Lock; Complete Time: 20:05 sp4 01/16 19:40 Order name: Labs collected and sent; Complete Time: 20:05 sp4 Administered Medications: 19:45 Drug: Ondansetron PO 4 mg Route: PO; lg3 22:39 Follow up: Response: No adverse reaction; Marked relief of symptoms; Nausea is decreasedvc1 22:40 Follow up: Response: No adverse reaction; Vomiting unchanged vc1 20:33 Drug: Diazepam IVP 5 mg Route: IVP; Site: right forearm; vc1 22:39 Follow up: Response: No adverse reaction; Marked relief of symptoms; Nausea is decreasedvc1 20:33 Drug: NS 0.9% IV 500 ml Route: IV; Rate: bolus; Site: right forearm; vc1 22:40 Follow up: IV Status: Completed infusion vc1 20:34 Drug: Ondansetron IVP 4 mg Route: IVP; Site: right forearm; vc1 22:40 Follow up: Response: No adverse reaction; Adverse reaction, Physician notified; Nausea vc1 is decreased 20:34 Drug: Promethazine IM 25 mg Route: IM; Site: right deltoid; vc1 22:40 Follow up: Response: No adverse reaction; Marked relief of symptoms; Nausea is decreasedvc1 Disposition Summary: 01/16/23 21:57 Discharge Ordered Location: Home sp4 Problem: new sp4 Symptoms: have improved sp4 Condition: Stable sp4 Diagnosis - Other peripheral vertigo, bilateral sp4 Followup: sp4 - With: Private Physician - When: 5 - 6 days - Reason: Recheck today's complaints Discharge Instructions: - Discharge Summary Sheet sp4 - Benign Positional Vertigo sp4 Forms: - Work release form vc1 - Thank You Letter sp4 Prescriptions: - Valium 5 mg Oral Tablet - take 1 tablet by ORAL route every 8 hours As needed PRN vertigo; 30 tablet; sp4 Refills: 0, Product Selection Permitted - Zofran 4 mg Oral Tablet - take 1 tablet by ORAL route every 6 hours As needed PRN nausea; 30 tablet; sp4 Refills: 0, Product Selection Permitted - promethazine 25 mg Oral Tablet - take 1 tablet by ORAL route every 6 hours As needed PRN nausea ( may use with sp4 Zofran ); 30 tablet; Refills: 0, Product Selection Permitted Signatures: Dispatcher [employer] Aster Mitchell RN RN lg3 Kelly Boo RN RN vc1 Roberto Patel MD MD sp4
[2023-01-16 23:13] VITALS: TEMP 98.1
[2023-01-16 23:16] VITALS: O2SAT 98
[2023-01-16 23:17] VITALS: BP 163/80
== END 2023-01-16 22:41 | disposition home or self-care (01) ==
LOC: ER 19:34
DX: H81.393 Other peripheral vertigo, bilateral (principal); E11.9 Type 2 diabetes mellitus without complications; I10 Essential (primary) hypertension; Z88.5 Allergy status to narcotic agent
CPT/HCPCS: 96361; 85025; 36415; 83690; 80053; 96375; 96372; 96374; 99284; J2550; Q0162; J3360; J2405; J7040

== ENCOUNTER 2023-06-07 15:16 | Emergency (ER) | payer OTHER ==
--- NOTE | 2023-06-07 15:52 | RAD REPORT ---
EXAM DESCRIPTION: CT - Head Brain Wo Cont - 06/07/2023 3:42 pm CLINICAL HISTORY: HEADACHE Headache, drowsiness COMPARISON: Head Brain Wo Cont dated 03/15/2021; Head Brain Wo Cont dated 08/19/2016 TECHNIQUE: All CT scans are performed using dose optimization technique as appropriate and may inclu de automated exposure control or mA/KV adjustment according to patient size. FINDINGS: No intracranial hemorrhage, hydrocephalus or extra-axial fluid collection.Mild generalized brain atrophy is present with mild periventricular and deep white matter chronic microvascular ische jerman changes.No areas of brain edema or evidence of midline shift. The paranasal sinuses and mastoids are clear. The calvarium is intact. IMPRESSION: No acute intracranial abnormality.
[2023-06-07 16:14] LABS: Specific Gravity > 1.030 (1.005-1.030); Urine Bacteria None Seen /HPF (<20); Urine Bilirubin NEGATIVE (Negative); Urine Blood Negative (Negative); Urine Clarity Clear (Clear); Urine Color Yellow (Yellow); Urine Crystals Unidentified Few /HPF (None Seen); Urine Glucose 2+ (Negative); Urine Mucus Slight /HPF (None Seen); Urine Protein 3+ (Negative); Urine RBC 21-50 /HPF (None Seen); Urine Urobilinogen Normal (Normal); Urine pH 5.5 (5.0-7.0)
--- NOTE | 2023-06-07 16:14 | RAD REPORT ---
EXAM DESCRIPTION: RAD - Chest Single View - 06/07/2023 4:08 pm CLINICAL HISTORY: COUGH Chest pain. COMPARISON: Chest Single View dated 03/15/2021; CHEST SINGLE VIEW dated 02/01/2013; ABDOMEN ACUTE SERI ES dated 08/30/2012; CHEST SINGLE VIEW dated 08/30/2012 FINDINGS: Portable technique limits examination quality. The lungs are grossly clear. The heart is normal in size. No displaced fractures. IMPRESSION: No acute intrathoracic process suspected.
[2023-06-07] MEDS ORDERED: AMLODIPINE 5 MG TAB ONE ×2 (16:20→17:34)
[2023-06-07 16:27] LABS: Bilirubin Direct 0.1 mg/dL (0-0.2); Bilirubin Indirect, Calculated 0.3 mg/dL (0.2-0.8); Bilirubin Total 0.4 mg/dL (0.2-1.0); Magnesium 1.8 mg/dL (1.6-2.4); Potassium 3.7 mEq/L (3.5-5.1); Protein, Total 8.6 g/dL (6.4-8.2); Troponin High Sensitivity 5.2 pg/mL (<58.9)
[2023-06-07 16:31] LABS: Absolute Lymphocytes (CBC) 5.5 K/uL (0.7-4.9); Hematocrit 41.8 % (36.0-45.0); Lymphocytes % 38.1 % (15.3-44.8); MCV 87.9 fL (80-100); MPV 9.3 fL (7.6-11.3); Platelets 318 thou/uL (152-406); RBC Red Blood Cell Count 4.76 M/uL (3.86-4.86)
[2023-06-07 16:32] LABS: Protime INR 0.89
--- NOTE | 2023-06-07 17:09 | ER ---
Nurse's Notes [facility] Name: Urszula Menchaca Age: 67 yrs Sex: Female : 1955 Arrival Date: 06/07/2023 Time: 15:16 Bed 18 Private MD: Diagnosis: UTI/ Urinary tract infection, site not specified;Essential (primary) hypertension;Headache Presentation: 06/07 15:22 Chief complaint: Patient states: "Dr. Butts sent me over because I've been having a aa5 headache and I think it's my blood pressure". Pt reports vomiting and BP 170/80. Pt states "I've been taking losartan for about 15 years now so I think it's not working anymore". Coronavirus screen: headache. Ebola Screen: Patient denies travel to an Ebola-affected area in the 21 days before illness onset. Initial Sepsis Screen: Does the patient meet any 2 criteria? No. Patient's initial sepsis screen is negative. Does the patient have a suspected source of infection? No. Patient's initial sepsis screen is negative. Risk Assessment: Do you want to hurt yourself or someone else? Patient reports no desire to harm self or others. Onset of symptoms was June 2023. 15:22 Method Of Arrival: Ambulatory aa5 15:22 Acuity: MARIFER 3 aa5 Triage Assessment: 15:57 General: Appears in no apparent distress. comfortable, Behavior is calm, cooperative. cm10 Pain: Complains of pain in head Pain does not radiate. Pain currently is 8 out of 10 on a pain scale. Quality of pain is described as aching, pressure, Pain began 1 day ago. Alleviated by medications, Also complains of. Neuro: No deficits noted. Level of Consciousness is awake, alert, obeys commands, Oriented to person, place, time, situation, Reports headache frontal area. Cardiovascular: No deficits noted. Heart tones present. Cardiovascular: Rhythm is sinus rhythm. Respiratory: No deficits noted. Airway is patent Respiratory effort is even, unlabored, Respiratory pattern is regular, symmetrical. Respiratory: Breath sounds are clear bilaterally. Historical: - Allergies: 15:24 Codeine; aa5 15:24 Morphine; aa5 - Home Meds: 15:24 metformin 1 Oral tab 1 tab 2 times per day [Active]; Glipizide Oral [Active]; aa5 rosuvastatin oral [Active]; losartan 100 mg oral tablet once [Active]; - PMHx: 15:24 Diabetes - NIDDM; Hypertension; Vertigo; aa5 - PSHx: 15:24 section; Total abdominal hysterectomy; aa5 - Immunization history:: Adult Immunizations unknown. - Social history:: Smoking status: Patient denies any tobacco usage or history of. - Family history:: not pertinent. Screenin:58 [facility] ED Fall Risk Assessment (Adult) History of falling in the last 3 months, cm10 including since admission No falls in past 3 months (0 pts) Confusion or Disorientation No (0 pts) Intoxicated or Sedated No (0 pts) Impaired Gait No (0 pts) Mobility Assist Device Used No (0 pt) Altered Elimination No (0 pt) Score/Fall Risk Level 0 - 2 = Low Risk Oriented to surroundings, Maintained a safe environment, Hourly rounding (assess needs \\T\\ fall precautionary measures) done. Abuse screen: Denies threats or abuse. Denies injuries from another. Nutritional screening: No deficits noted. Tuberculosis screening: No symptoms or risk factors identified. Assessment: 15:58 Pain: Complains of pain in head. cm10 Vital Signs: 15:22 BP 182 / 99; Pulse 73; Resp 18 S; Temp 97.9(TE); Pulse Ox 100% on R/A; Weight 65.32 kg aa5 (R); Height 5 ft. 0 in. (R); 16:30 BP 171 / 79; Pulse 72; Resp 16; Pulse Ox 97% on R/A; cm10 17:00 BP 172 / 77; Pulse 65; Resp 18; Pulse Ox 97% ; cm10 17:30 BP 175 / 88; Pulse 64; ll1 18:00 BP 190 / 86; Pulse 65; Resp 18; Pulse Ox 98% on R/A; cm10 18:38 BP 185 / 91; cm10 15:22 Body Mass Index 28.12 (65.32 kg, 152.4 cm) aa5 Stanton Coma Score: 17:06 Eye Response: spontaneous(4). Motor Response: obeys commands(6). Verbal Response: lexi oriented(5). Total: 15. ED Course: 15:19 Patient arrived in ED. mg5 15:21 Isaiah Dewey MD is Attending Physician. lexi 15:22 Arm band placed on. aa5 15:24 Triage completed. aa5 15:39 Aleyda Hawk, RN is Primary Nurse. vt1 15:43 CT Head Brain wo Cont In Process Unspecified. EDMS 16:10 XRAY Chest (1 view) In Process Unspecified. EDMS 17:08 Steve Gar MD is Referral Physician. [facility] 18:40 Patient has correct armband on for positive identification. Provided Education on: ER cm10 Process and procedures.. 18:40 No provider procedures requiring assistance completed. IV discontinued, intact, cm10 bleeding controlled, No redness/swelling at site. Pressure dressing applied. Administered Medications: 16:10 Drug: Norvasc PO 5 mg PO once {Note: BP 170/74.} Route: PO; cm10 17:37 Follow up: Response: No adverse reaction ll1 17:28 Not Given (IV infiltrated): rocephin1 grams IV at per protocol once; Given slow IV push ll1 per pharmacy instructions 17:28 Drug: Norvasc PO 5 mg PO once Route: PO; ll1 18:31 Follow up: Response: No adverse reaction cm10 17:37 Drug: Rocephin (cefTRIAXone) IM 1 grams IM once Route: IM; Site: right gluteus; ll1 18:31 Follow up: Response: No adverse reaction cm10 Medication: 15:58 VIS not applicable for this client. cm10 Outcome: 17:09 Discharge ordered by . [facility] 18:40 Discharged to home ambulatory, cm10 18:40 Condition: good 18:40 Discharge instructions given to patient, Instructed on discharge instructions, follow up and referral plans. medication usage, Demonstrated understanding of instructions, follow-up care, medications, Prescriptions given X 2, 18:40 Patient left the ED. cm10 Signatures: Dispatcher [employer] Isaiah Boland MD MD cha Calderon, Audri, RN RN aa5 Carlene Rios RN RN [email or web address] Lolly Rebollar RN RN cm10 Aleyda Hawk, RN RN me1 Peggy Asencio mg5 Corrections: (The following items were deleted from the chart) 15:26 15:22 BP 182 / 99; Pulse 73bpm; Resp 18bpm; Spontaneous; Pulse Ox 100% RA; Temp 97.9F aa5 Temporal; aa5
--- NOTE | 2023-06-07 17:09 | EDPHYS ---
Physician Documentation [facility] Name: Urszula Menchaca Age: 67 yrs Sex: Female : 1955 Arrival Date: 06/07/2023 Time: 15:16 Bed 18 Private MD: ED Physician Isaiah Dewey HPI: 06/07 17:03 This 67 yrs old Female presents to ER via Ambulatory with complaints of Sent lexi By 17:03 The patient complains of pain to the forehead, left frontal area and right frontal lexi area. The patient describes the headache as aching. Onset: The symptoms/episode began/occurred 1 day(s) ago. BP UP , MILD HEADACHE. Associated signs and symptoms: Pertinent positives:. Severity of symptoms: At its worst the pain was mild, in the emergency department the pain is unchanged. Headache History: The patient has had previous headaches and this one is similar to previous episodes. Onset: The symptoms/episode began/occurred 1 day(s) ago. Severity of symptoms: At their worst the symptoms were mild in the emergency department the symptoms are unchanged. The symptoms are alleviated by remaining still. Historical: - Allergies: 15:24 Codeine; aa5 15:24 Morphine; aa5 - Home Meds: 15:24 metformin 1 Oral tab 1 tab 2 times per day [Active]; Glipizide Oral [Active]; aa5 rosuvastatin oral [Active]; losartan 100 mg oral tablet once [Active]; - PMHx: 15:24 Diabetes - NIDDM; Hypertension; Vertigo; aa5 - PSHx: 15:24 section; Total abdominal hysterectomy; aa5 - Immunization history:: Adult Immunizations unknown. - Social history:: Smoking status: Patient denies any tobacco usage or history of. - Family history:: not pertinent. ROS: 17:03 Constitutional: Negative for fever, chills, and weight loss, Eyes: Negative for injury, lexi pain, redness, and discharge, ENT: Negative for injury, pain, and discharge, Neck: Negative for injury, pain, and swelling, Cardiovascular: Negative for chest pain, palpitations, and edema, Respiratory: Negative for shortness of breath, cough, wheezing, and pleuritic chest pain, Abdomen/GI: Negative for abdominal pain, nausea, vomiting, diarrhea, and constipation, Back: Negative for injury and pain, : Negative for injury, bleeding, discharge, and swelling, MS/Extremity: Negative for injury and deformity, Skin: Negative for injury, rash, and discoloration, Psych: Negative for depression, anxiety, suicide ideation, homicidal ideation, and hallucinations, Allergy/Immunology: Negative for hives, rash, and allergies, Endocrine: Negative for neck swelling, polydipsia, polyuria, polyphagia, and marked weight changes, Hematologic/Lymphatic: Negative for swollen nodes, abnormal bleeding, and unusual bruising, 17:03 Neuro: Positive for headache, Exam: 17:03 Constitutional: This is a well developed, well nourished patient who is awake, alert, lexi and in no acute distress. Head/Face: Normocephalic, atraumatic. Eyes: Pupils equal round and reactive to light, extra-ocular motions intact. Lids and lashes normal. Conjunctiva and sclera are non-icteric and not injected. Cornea within normal limits. Periorbital areas with no swelling, redness, or edema. ENT: Nares patent. No nasal discharge, no septal abnormalities noted. Tympanic membranes are normal and external auditory canals are clear. Oropharynx with no redness, swelling, or masses, exudates, or evidence of obstruction, uvula midline. Mucous membranes moist. Neck: Trachea midline, no thyromegaly or masses palpated, and no cervical lymphadenopathy. Supple, full range of motion without nuchal rigidity, or vertebral point tenderness. No Meningismus. Chest/axilla: Normal chest wall appearance and motion. Nontender with no deformity. No lesions are appreciated. Cardiovascular: Regular rate and rhythm with a normal S1 and S2. No gallops, murmurs, or rubs. Normal PMI, no JVD. No pulse deficits. Respiratory: Lungs have equal breath sounds bilaterally, clear to auscultation and percussion. No rales, rhonchi or wheezes noted. No increased work of breathing, no retractions or nasal flaring. Abdomen/GI: Soft, non-tender, with normal bowel sounds. No distension or tympany. No guarding or rebound. No evidence of tenderness throughout. Back: No spinal tenderness. No costovertebral tenderness. Full range of motion. Female : Normal external genitalia. Skin: Warm, dry with normal turgor. Normal color with no rashes, no lesions, and no evidence of cellulitis. MS/ Extremity: Pulses equal, no cyanosis. Neurovascular intact. Full, normal range of motion. Neuro: Awake and alert, GCS 15, oriented to person, place, time, and situation. Cranial nerves II-XII grossly intact. Motor strength 5/5 in all extremities. Sensory grossly intact. Cerebellar exam normal. Normal gait. Psych: Awake, alert, with orientation to person, place and time. Behavior, mood, and affect are within normal limits. 17:03 ECG was reviewed by the Attending Physician. Vital Signs: 15:22 BP 182 / 99; Pulse 73; Resp 18 S; Temp 97.9(TE); Pulse Ox 100% on R/A; Weight 65.32 kg aa5 (R); Height 5 ft. 0 in. (R); 16:30 BP 171 / 79; Pulse 72; Resp 16; Pulse Ox 97% on R/A; cm10 17:00 BP 172 / 77; Pulse 65; Resp 18; Pulse Ox 97% ; cm10 17:30 BP 175 / 88; Pulse 64; ll1 18:00 BP 190 / 86; Pulse 65; Resp 18; Pulse Ox 98% on R/A; cm10 18:38 BP 185 / 91; cm10 15:22 Body Mass Index 28.12 (65.32 kg, 152.4 cm) aa5 Blair Coma Score: 17:06 Eye Response: spontaneous(4). Motor Response: obeys commands(6). Verbal Response: lexi oriented(5). Total: 15. MDM: 15:21 Patient medically screened. lexi 17:06 Differential diagnosis: cerebral vascular accident, hypoglycemia, hyponatremia, lexi migraine, neoplasm, subarachnoid bleed, subdural hematoma, temporal arteritis, tension headache, trigeminal neuralgia. Data reviewed: vital signs, nurses notes, lab test result(s), EKG, radiologic studies, CT scan, plain films. 06/07 15:28 Order name: Basic Metabolic Panel; Complete Time: 16:40 lexi 06/07 15:28 Order name: CBC with Diff; Complete Time: 16:40 lexi 06/07 15:28 Order name: LFT's; Complete Time: 16:40 lexi 06/07 15:28 Order name: Magnesium; Complete Time: 16:40 lexi 06/07 15:28 Order name: NT PRO-BNP; Complete Time: 16:40 [facility] 06/07 15:28 Order name: PT-INR; Complete Time: 16:40 [facility] 06/07 15:28 Order name: Troponin HS; Complete Time: 16:40 [facility] 06/07 15:28 Order name: Urinalysis w/ reflexes; Complete Time: 16:40 [facility] 06/07 15:28 Order name: XRAY Chest (1 view); Complete Time: 16:40 [facility] 06/07 15:28 Order name: CT Head Brain wo Cont; Complete Time: 16:40 [facility] 06/07 15:28 Order name: EKG; Complete Time: 15:29 [facility] 06/07 15:28 Order name: Cardiac monitoring; Complete Time: 15:39 [facility] 06/07 15:28 Order name: EKG - Nurse/Tech; Complete Time: 15:39 [facility] 06/07 15:28 Order name: IV Saline Lock; Complete Time: 15:39 [facility] 06/07 15:28 Order name: Labs collected and sent; Complete Time: 15:39 [facility] 06/07 15:28 Order name: O2 Per Protocol; Complete Time: 15:39 [facility] 06/07 15:28 Order name: O2 Sat Monitoring; Complete Time: 15:46 [facility] EC:03 Rate is 62 beats/min. Rhythm is regular. QRS Letts is Normal. [place] interval is normal. QRS lexi interval is normal. QT interval is normal. No Q waves. T waves are Normal. ST Segment is depressed in leads II, III, aVF. Clinical impression: NSR w/ Non-specific ST/T Changes. Administered Medications: 16:10 Drug: Norvasc PO 5 mg PO once {Note: BP 170/74.} Route: PO; cm10 17:37 Follow up: Response: No adverse reaction ll1 17:28 Not Given (IV infiltrated): rocephin1 grams IV at per protocol once; Given slow IV push ll1 per pharmacy instructions 17:28 Drug: Norvasc PO 5 mg PO once Route: PO; ll1 18:31 Follow up: Response: No adverse reaction cm10 17:37 Drug: Rocephin (cefTRIAXone) IM 1 grams IM once Route: IM; Site: right gluteus; ll1 18:31 Follow up: Response: No adverse reaction cm10 Disposition Summary: 06/07/23 17:09 Discharge Ordered Notes: Location: Home lexi Problem: new lexi Symptoms: have improved lexi Condition: Stable lexi Diagnosis - UTI/ Urinary tract infection, site not specified lexi - Essential (primary) hypertension lexi - Headache lexi Followup: lexi - With: Private Physician - When: 1 - 2 days - Reason: Recheck today's complaints, Continuance of care, Re-evaluation by your physician Followup: lexi - With: Steve Gar MD - When: 2 - 3 days - Reason: Recheck today's complaints, Re-evaluation by your physician Discharge Instructions: - Discharge Summary Sheet lexi - Hypertension, Adult lexi - Urinary Tract Infection, Adult lexi - Urinary Tract Infection, Adult, [id number] lexi - Hypertension, Adult, [id number] lexi - How to Take Your Blood Pressure, [id number] lexi - Aspirin and Your Heart lexi - Managing Your Hypertension lexi Forms: - Medication Reconciliation Form lexi - Thank You Letter lexi - Antibiotic Education lexi - Prescription Opioid Use lexi - Patient Portal Instructions lexi - Leadership Thank You Letter lexi - Work release form cm10 Prescriptions: - Cipro 250 mg Oral tablet - take 1 tablet ORAL route every 12 hours; 14 tablet; Refills: 0, Product lexi Selection Permitted - Norvasc 5 mg Oral Tablet - take 1 tablet ORAL route once daily; 20 tablet; Refills: 0, Product Selection lexi Permitted Signatures: Dispatcher [employer] Isaiah Boland MD MD cha Calderon, Audri, RN RN aa5 Carlene Rios RN RN ll1 Lolly Rebollar RN RN cm10
[2023-06-07] MEDS ORDERED: CEFTRIAXONE 1000 MG/VIAL ONE ×2 (17:34→17:44)
[2023-06-07] MEDS ORDERED: NA CHLORIDE 0.9% 50 ML ONE (17:34)
[2023-06-07] MEDS ORDERED: WATER FOR INJ,STERILE 10 ML ONE (17:44)
[2023-06-07 18:52] VITALS: TEMP 97.9
[2023-06-07 18:56] VITALS: O2SAT 98
[2023-06-07 18:57] VITALS: BP 185/91
--- NOTE | 2023-06-08 16:39 | EKG ---
Test Date: 2023-06-07 Test Time: 15:36:16 [employer] Operator: JAMES MEASUREMENT RESULTS: Intervals: Rate: 62 DE: 152 QRSD: 96 QT: 386 QTc: 391 [place]: P: 62 DE: 152 QRS: 8 T: 27 INTERPRETIVE STATEMENTS: Normal sinus rhythm ST abnormality, possible digitalis effect Abnormal ECG Compared to ECG 03/15/2021 17:53:54 ST (T wave) deviation now present Prolonged QT interval no longer present Electronically Signed On 06-08-23 16:37:46 CDT by Steve Gar
== END 2023-06-07 18:40 | disposition home or self-care (01) ==
LOC: ER 15:16 → SUPCPDRO 15:16 → ER 18:40
DX: N39.0 Urinary tract infection, site not specified (principal); I10 Essential (primary) hypertension; E11.9 Type 2 diabetes mellitus without complications; Z88.5 Allergy status to narcotic agent
CPT/HCPCS: 93005; 85025; 81001; 80048; 36415; 83735; 85610; 80076; 84484; 83880; 70450; 71045; 96372; 99284; J0696 ×2